=== PATIENT | female | born 1930 | race Caucasian/White ===

== ENCOUNTER 2016-12-04 14:13 | Inpatient (IN) | payer OTHER ==
[~2016-12-04] VITALS: Ht 154.9 cm; Wt 74.4 kg
[2016-12-04 15:20] LABS: Albumin 3.2 g/dL (3.4-5.0); Alkaline Phosphatase 126 U/L (45-117); Anion Gap 7 (5-15); Aspartate Aminotransferase 26 U/L (15-37); Bilirubin, Total 0.4 mg/dL (0.2-1.0); Blood Urea Nitrogen 15 mg/dL (7-18); Calcium 8.8 mg/dL (8.5-10.1); Carbon Dioxide 28 mmol/L (21-32); Chloride 107 mmol/L (98-107); GFR African American 78 mL/min; GFR Non-African American 65 mL/min; Glucose 93 mg/dL (74-106); Potassium 3.8 mmol/L (3.5-5.1); Sodium 142 mmol/L (136-145); Total Protein 7.5 g/dL (6.4-8.2)
[2016-12-04 15:22] LABS: Basophils # (auto) 0 uL; Basophils % (auto) 0.2 % (0.0-2.0); Eosinophils # (auto) 0.1 uL; Hematocrit 38.1 % (36.0-46.0); Hemoglobin 12.1 g/dL (12.2-16.2); Lymphocytes % (auto) 18.2 % (10.0-50.0); Mean Corpuscular Hemoglobin 29.4 pg (28.0-32.0); Mean Corpuscular Hgb Conc. 31.8 g/dL (32.0-36.0); Mean Corpuscular Volume 92.6 fL (80.0-100.0); Mean Platelet Volume 7.6 fL (7.4-10.4); Monocytes # (auto) 0.4 uL; Neutrophils # (auto) 3.8 uL; Neutrophils % (auto) 72.6 % (37.0-80.0); Platelet Count (auto) 284 10^3/uL (140-450); Red Cell Distribution Width 15.8 % (11.6-16.0); White Blood Cell 5.3 10^3/uL (4.4-10.8)
[2016-12-05] MEDS ORDERED: VANCOMYCIN 1GM/250ML D5W 250 ML IV ONE (07:30)
[2016-12-05] MEDS ORDERED: ENOXAPARIN SOD 80 MG/0.8ML SYRINGE SC ONE (08:15)
[2016-12-05] MEDS ORDERED: HYDROcodone-ACET 5/325MG TAB PO PRN (09:00)
[2016-12-05] MEDS ORDERED: LACTULOSE 20Gm/30ML SOLN PO PRN (09:00)
[2016-12-05] MEDS ORDERED: ACETAMINOPHEN 500 MG TAB PO PRN (09:00)
[2016-12-05] MEDS ORDERED: PROMETHAZINE HCL 25 MG/ML 1ML IV PRN (09:00)
[2016-12-05] MEDS ORDERED: LORazepam 0.5 MG TAB PO PRN (09:00)
[2016-12-05] MEDS ORDERED: MORPHINE SULF INJ 2 MG/ML SYRINGE 1ML IV PRN (09:00)
[2016-12-05] MEDS: cefTRIAXone 1GM/50ML D5W 50 ML IV SCH (09:35)
[2016-12-05] MEDS: SODIUM CHLORIDE 0.9% 1,000 ML IV SCH ×2 (09:35→21:41)
[2016-12-05] MEDS: amLODIPine BESYLATE 5 MG TAB PO SCH (09:42)
[2016-12-05] MEDS ORDERED: ALEN70SO PO (09:51)
[2016-12-05] MEDS ORDERED: PANT1INJ3 PO (09:51)
[2016-12-05] MEDS ORDERED: TIOTCAP INH (09:51)
[2016-12-05] MEDS ORDERED: CHOL400D PO (09:51)
[2016-12-05] MEDS ORDERED: PATIENTS OWN MEDICATION (Simvastatin 40 MG) PO SCH ×2 (10:00)
[2016-12-05] MEDS: CLINDAMYCIN 600MG IV 50 ML IV SCH ×2 (10:45→18:00)
[2016-12-05 12:29] VITALS: BP 129/45
[2016-12-05 13:30] VITALS: BP 131/60
[2016-12-05 17:00] VITALS: BP 145/66
[2016-12-05] MEDS: ATORVASTATIN 20 MG TAB PO SCH (21:40)
[2016-12-05 21:42] VITALS: BP 121/62
[2016-12-06] VITALS (8 sets, daily range): BP systolic 120–142; BP diastolic 51–72
[2016-12-06] MEDS: CLINDAMYCIN 600MG IV 50 ML IV SCH ×3 (01:49→17:30)
[2016-12-06] MEDS: amLODIPine BESYLATE 5 MG TAB PO SCH (09:15)
[2016-12-06] MEDS: cefTRIAXone 1GM/50ML D5W 50 ML IV SCH (09:15)
[2016-12-06] MEDS: ENOXAPARIN SOD 40 MG/0.4 ML SYRINGE SC SCH (09:15)
[2016-12-06] MEDS: SODIUM CHLORIDE 0.9% 1,000 ML IV SCH (13:06)
[2016-12-06] MEDS: ATORVASTATIN 20 MG TAB PO SCH (22:09)
[2016-12-07] VITALS (7 sets, daily range): BP systolic 123–142; BP diastolic 58–69
[2016-12-07] MEDS: CLINDAMYCIN 600MG IV 50 ML IV SCH ×3 (02:13→18:02)
[2016-12-07] MEDS: SODIUM CHLORIDE 0.9% 1,000 ML IV SCH ×2 (03:51→18:02)
[2016-12-07 06:18] LABS: Basophils # (auto) 0 uL; Basophils % (auto) 0.2 % (0.0-2.0); Eosinophils # (auto) 0.1 uL; Eosinophils % (auto) 2.9 % (0.0-7.0); Hematocrit 36.4 % (36.0-46.0); Hemoglobin 11.4 g/dL (12.2-16.2); Lymphocytes # (auto) 0.6 uL; Lymphocytes % (auto) 16.8 % (10.0-50.0); Mean Corpuscular Hemoglobin 29.3 pg (28.0-32.0); Mean Corpuscular Hgb Conc. 31.4 g/dL (32.0-36.0); Mean Corpuscular Volume 93.4 fL (80.0-100.0); Mean Platelet Volume 8.1 fL (7.4-10.4); Monocytes # (auto) 0.4 uL; Monocytes % (auto) 11.5 % (0.0-12.0); Neutrophils # (auto) 2.5 uL; Neutrophils % (auto) 68.6 % (37.0-80.0); Platelet Count (auto) 249 10^3/uL (140-450); Red Cell Distribution Width 15.3 % (11.6-16.0); White Blood Cell 3.7 10^3/uL (4.4-10.8)
[2016-12-07 06:56] LABS: Albumin 2.8 g/dL (3.4-5.0); BUN/Creatinine Ratio 16.3; Bilirubin, Total 0.3 mg/dL (0.2-1.0); Calcium 8.2 mg/dL (8.5-10.1); Potassium 3.9 mmol/L (3.5-5.1); Total Protein 6.8 g/dL (6.4-8.2)
[2016-12-07] MEDS: BOOST PLUS 8 ounce PO SCH ×3 (08:11→17:45)
[2016-12-07] MEDS: cefTRIAXone 1GM/50ML D5W 50 ML IV SCH (08:22)
[2016-12-07] MEDS: amLODIPine BESYLATE 5 MG TAB PO SCH (09:36)
[2016-12-07] MEDS: ENOXAPARIN SOD 40 MG/0.4 ML SYRINGE SC SCH (09:36)
[2016-12-07] MEDS: ALBUTEROL SULF 2.5 MG/0.5ML(0.5%) NEB SOLN NEB SCH (19:10)
[2016-12-07] MEDS: ATORVASTATIN 20 MG TAB PO SCH (21:54)
[2016-12-08] MEDS: CLINDAMYCIN 600MG IV 50 ML IV SCH ×3 (01:47→18:26)
[2016-12-08 05:01] VITALS: BP 142/60
[2016-12-08 05:35] LABS: Basophils # (auto) 0 uL; Basophils % (auto) 0.2 % (0.0-2.0); Eosinophils # (auto) 0.1 uL; Eosinophils % (auto) 2.3 % (0.0-7.0); Hematocrit 32.5 % (36.0-46.0); Hemoglobin 10.6 g/dL (12.2-16.2); Lymphocytes # (auto) 0.5 uL; Lymphocytes % (auto) 15.5 % (10.0-50.0); Mean Corpuscular Hemoglobin 30.1 pg (28.0-32.0); Mean Corpuscular Hgb Conc. 32.6 g/dL (32.0-36.0); Mean Corpuscular Volume 92.6 fL (80.0-100.0); Mean Platelet Volume 7.7 fL (7.4-10.4); Monocytes # (auto) 0.5 uL; Monocytes % (auto) 13.8 % (0.0-12.0); Neutrophils # (auto) 2.4 uL; Neutrophils % (auto) 68.2 % (37.0-80.0); Platelet Count (auto) 222 10^3/uL (140-450); Red Cell Distribution Width 15.8 % (11.6-16.0); White Blood Cell 3.5 10^3/uL (4.4-10.8)
[2016-12-08] MEDS: ALBUTEROL SULF 2.5 MG/0.5ML(0.5%) NEB SOLN NEB SCH ×4 (05:51→19:09)
[2016-12-08 06:21] LABS: Albumin 2.5 g/dL (3.4-5.0); Calcium 7.8 mg/dL (8.5-10.1); Potassium 3.8 mmol/L (3.5-5.1)
[2016-12-08 06:23] LABS: BUN/Creatinine Ratio 17.1
[2016-12-08 06:26] LABS: Bilirubin, Total 0.3 mg/dL (0.2-1.0); Total Protein 6.3 g/dL (6.4-8.2)
[2016-12-08 08:00] VITALS: BP 113/54
[2016-12-08] MEDS: SODIUM CHLORIDE 0.9% 1,000 ML IV SCH (08:19)
[2016-12-08] MEDS: cefTRIAXone 1GM/50ML D5W 50 ML IV SCH (08:19)
[2016-12-08] MEDS: BOOST PLUS 8 ounce PO SCH ×3 (08:19→18:26)
[2016-12-08 09:00] VITALS: BP 113/54
[2016-12-08] MEDS: amLODIPine BESYLATE 5 MG TAB PO SCH (09:32)
[2016-12-08] MEDS: ENOXAPARIN SOD 40 MG/0.4 ML SYRINGE SC SCH (09:32)
[2016-12-08 11:40] LABS: Cholesterol 112 mg/dL (<200); HDL Cholesterol 68 mg/dL (40-59); LDL Cholesterol 49 mg/dL (<100); Triglycerides 46 mg/dL (<150)
[2016-12-08 12:07] LABS: B-Type Natriuretic Peptide 497.62 pg/mL (0-100)
[2016-12-08 12:08] LABS: Temperature: 22.7 C (20.0-25.0)
[2016-12-08 13:00] VITALS: BP 126/55
[2016-12-08 17:00] VITALS: BP 120/64
[2016-12-08] MEDS ORDERED: FUROSEMIDE 20 MG/2 ML VIAL IV ONE (17:45)
[2016-12-08] MEDS: ATORVASTATIN 20 MG TAB PO SCH (21:37)
[2016-12-09] VITALS (8 sets, daily range): BP systolic 124–130; BP diastolic 55–85
[2016-12-09] MEDS: CLINDAMYCIN 600MG IV 50 ML IV SCH ×3 (01:42→18:04)
[2016-12-09] MEDS: ALBUTEROL SULF 2.5 MG/0.5ML(0.5%) NEB SOLN NEB SCH ×3 (06:16→19:18)
[2016-12-09 06:34] LABS: Basophils # (auto) 0 uL; Basophils % (auto) 0.1 % (0.0-2.0); Eosinophils # (auto) 0.1 uL; Eosinophils % (auto) 3.7 % (0.0-7.0); Hematocrit 33.3 % (36.0-46.0); Hemoglobin 11.1 g/dL (12.2-16.2); Lymphocytes # (auto) 0.5 uL; Lymphocytes % (auto) 13.3 % (10.0-50.0); Mean Corpuscular Hemoglobin 30.7 pg (28.0-32.0); Mean Corpuscular Hgb Conc. 33.3 g/dL (32.0-36.0); Mean Corpuscular Volume 92.3 fL (80.0-100.0); Monocytes # (auto) 0.4 uL; Monocytes % (auto) 11.9 % (0.0-12.0); Neutrophils # (auto) 2.4 uL; Platelet Count (auto) 232 10^3/uL (140-450); Red Cell Distribution Width 16.1 % (11.6-16.0); White Blood Cell 3.4 10^3/uL (4.4-10.8)
[2016-12-09 07:13] LABS: BUN/Creatinine Ratio 16.3; Calcium 8.1 mg/dL (8.5-10.1); Magnesium 2.2 mg/dL (1.6-2.6); Phosphorus 3.2 mg/dL (2.5-4.90); Potassium 3.7 mmol/L (3.5-5.1)
[2016-12-09] MEDS: BOOST PLUS 8 ounce PO SCH ×3 (08:00→18:05)
[2016-12-09] MEDS: ENOXAPARIN SOD 40 MG/0.4 ML SYRINGE SC SCH (09:46)
[2016-12-09] MEDS: cefTRIAXone 1GM/50ML D5W 50 ML IV SCH (09:47)
[2016-12-09] MEDS: amLODIPine BESYLATE 5 MG TAB PO SCH (09:47)
[2016-12-09] MEDS: FERROUS SULFATE 325 MG TAB PO SCH ×2 (09:47→18:05)
[2016-12-09] MEDS: ATORVASTATIN 20 MG TAB PO SCH (21:46)
[2016-12-09] MEDS: TEMAZEPAM 15 MG CAP PO PRN (21:46)
[2016-12-09] MEDS: FLORASTOR (S. BOULARDII) 250 MG CAP PO SCH (21:46)
[2016-12-10] MEDS: CLINDAMYCIN 600MG IV 50 ML IV SCH ×3 (02:07→18:00)
[2016-12-10 05:30] VITALS: BP 130/71
[2016-12-10] MEDS: ALBUTEROL SULF 2.5 MG/0.5ML(0.5%) NEB SOLN NEB SCH ×3 (06:37→19:38)
[2016-12-10 09:00] VITALS: BP 136/63
[2016-12-10] MEDS: BOOST PLUS 8 ounce PO SCH ×3 (09:08→18:25)
[2016-12-10] MEDS: cefTRIAXone 1GM/50ML D5W 50 ML IV SCH (09:08)
[2016-12-10] MEDS: ENOXAPARIN SOD 40 MG/0.4 ML SYRINGE SC SCH (10:19)
[2016-12-10] MEDS: amLODIPine BESYLATE 5 MG TAB PO SCH (10:20)
[2016-12-10] MEDS: FLORASTOR (S. BOULARDII) 250 MG CAP PO SCH ×2 (10:21→23:17)
[2016-12-10] MEDS: FERROUS SULFATE 325 MG TAB PO SCH ×2 (10:21→18:00)
[2016-12-10 13:00] VITALS: BP 134/61
[2016-12-10] MEDS ORDERED: ASPI-231 PO (15:37)
[2016-12-10] MEDS ORDERED: SACC250C PO (15:37)
[2016-12-10] MEDS ORDERED: FER325T PO (15:37)
[2016-12-10] MEDS ORDERED: Nutritional Supplements PO (15:37)
[2016-12-10] MEDS ORDERED: FURO20TA PO (15:59)
[2016-12-10] MEDS ORDERED: POTA-167 PO (15:59)
[2016-12-10 16:00] VITALS: BP 138/54
[2016-12-10 20:00] VITALS: BP 140/65
[2016-12-10 21:21] VITALS: BP 140/65
[2016-12-10] MEDS: ATORVASTATIN 20 MG TAB PO SCH (21:45)
[2016-12-10] MEDS: TEMAZEPAM 15 MG CAP PO PRN (23:11)
[2016-12-11] MEDS: ALBUTEROL SULF 2.5 MG/0.5ML(0.5%) NEB SOLN NEB SCH ×3 (00:01→13:30)
[2016-12-11] MEDS: CLINDAMYCIN 600MG IV 50 ML IV SCH (03:30)
[2016-12-11 05:17] VITALS: BP 133/60
[2016-12-11] MEDS: FERROUS SULFATE 325 MG TAB PO SCH (08:00)
[2016-12-11 08:21] VITALS: BP 146/72
[2016-12-11] MEDS: cefTRIAXone 1GM/50ML D5W 50 ML IV SCH (09:11)
[2016-12-11] MEDS ORDERED: methylPREDNISolone SOD SUCC 40 MG/ML VL IV ONE (10:15)
[2016-12-11] MEDS ORDERED: FUROSEMIDE 20 MG/2 ML VIAL IV ONE (10:15)
[2016-12-11] MEDS: BOOST PLUS 8 ounce PO SCH ×2 (10:32→12:00)
[2016-12-11] MEDS: amLODIPine BESYLATE 5 MG TAB PO SCH (11:09)
[2016-12-11] MEDS: FLORASTOR (S. BOULARDII) 250 MG CAP PO SCH (11:10)
[2016-12-11] MEDS: ENOXAPARIN SOD 40 MG/0.4 ML SYRINGE SC SCH (11:10)
[2016-12-11 12:14] VITALS: BP 142/77
== END 2016-12-11 16:25 | disposition home health service (06) | DRG 602 ==
LOC: ER 14:13 → OVERFLOW 14:14 → EAST 12-05 11:10
PROVIDERS: ADMIT Internal Medicine; ATTEND Internal Medicine
DX: L03.115 Cellulitis of right lower limb (principal); I50.33 Acute on chronic diastolic (congestive) heart failure; J96.01 Acute respiratory failure with hypoxia; E43 Unspecified severe protein-calorie malnutrition; J18.9 Pneumonia, unspecified organism; D68.59 Other primary thrombophilia; J44.0 Chronic obstructive pulmonary disease with (acute) lower respiratory infection; D50.9 Iron deficiency anemia, unspecified; I11.0 Hypertensive heart disease with heart failure; I87.2 Venous insufficiency (chronic) (peripheral); L03.116 Cellulitis of left lower limb; E11.51 Type 2 diabetes mellitus with diabetic peripheral angiopathy without gangrene; D63.8 Anemia in other chronic diseases classified elsewhere; M19.90 Unspecified osteoarthritis, unspecified site; E78.5 Hyperlipidemia, unspecified; F17.210 Nicotine dependence, cigarettes, uncomplicated; M81.0 Age-related osteoporosis without current pathological fracture; Z82.3 Family history of stroke; Z83.3 Family history of diabetes mellitus; Z88.0 Allergy status to penicillin; Z88.2 Allergy status to sulfonamides; Z79.899 Other long term (current) drug therapy; Z68.31 Body mass index [BMI] 31.0-31.9, adult
CPT/HCPCS: 36415; 36600; 71010; 80048; 80053; 80061; 82270; 82378; 82805; 83540; 83550; 83605; 83735; 83880; 84100; 84443; 84484; 85025; 85379; 85652; 87040; 93005; 93306; 93926; 93970; 94640; 96365; 96372; J0696; J3490

== ENCOUNTER → 2016-12-04 | Outpatient (CLI) | payer OTHER ==
[~2016-12-04] MED LIST: AML5T PO; SIMV-13 PO
== END | disposition home or self-care (01) ==
LOC: LAB 12:37
PROVIDERS: ATTEND Internal Medicine
DX: L03.90 Cellulitis, unspecified (principal)
CPT/HCPCS: 87070

== ENCOUNTER → 2017-03-23 | Outpatient (CLI) | payer OTHER ==
[~2017-03-23] MED LIST changes: +ALEN70SO PO; +ASPI-231 PO; +CHOL400D PO; +FER325T PO; +FURO20TA PO; +Nutritional Supplements PO; +POTA-167 PO; +SACC250C PO; -SIMV-13 PO; +TIOTCAP INH
== END | disposition home or self-care (01) ==
LOC: XY 09:56
PROVIDERS: ATTEND Internal Medicine
DX: I70.203 Unspecified atherosclerosis of native arteries of extremities, bilateral legs (principal)
CPT/HCPCS: 93923; 93925

== ENCOUNTER 2017-03-27 13:44 | Inpatient (IN) | payer OTHER ==
[~2017-03-27] VITALS: Ht 154.9 cm; Wt 60.2 kg
[2017-03-27 14:48] LABS: Basophils # (auto) 0 uL; Basophils % (auto) 0.3 % (0.0-2.0); Eosinophils # (auto) 0.2 uL; Eosinophils % (auto) 4.1 % (0.0-7.0); Hematocrit 40.1 % (36.0-46.0); Hemoglobin 13.5 g/dL (12.2-16.2); Lymphocytes # (auto) 1.1 uL; Mean Corpuscular Hemoglobin 31.4 pg (28.0-32.0); Mean Corpuscular Hgb Conc. 33.7 g/dL (32.0-36.0); Mean Corpuscular Volume 93.1 fL (80.0-100.0); Mean Platelet Volume 7.6 fL (7.4-10.4); Monocytes # (auto) 0.2 uL; Monocytes % (auto) 6.3 % (0.0-12.0); Neutrophils # (auto) 2.4 uL; Neutrophils % (auto) 62.3 % (37.0-80.0); Platelet Count (auto) 264 10^3/uL (140-450); Red Cell Distribution Width 16.9 % (11.6-16.0); White Blood Cell 3.9 10^3/uL (4.4-10.8)
[2017-03-27 15:28] LABS: Albumin 3.1 g/dL (3.4-5.0); Anion Gap 9 (5-15); Aspartate Aminotransferase 34 U/L (15-37); BUN/Creatinine Ratio 23.9; Blood Urea Nitrogen 27 mg/dL (7-18); Calcium 8.7 mg/dL (8.5-10.1); Carbon Dioxide 25 mmol/L (21-32); Chloride 114 mmol/L (98-107); GFR African American 59 mL/min; GFR Non-African American 48 mL/min; Glucose 84 mg/dL (74-106); Potassium 4.2 mmol/L (3.5-5.1); Sodium 148 mmol/L (136-145)
[2017-03-27 15:31] LABS: Alkaline Phosphatase 118 U/L (45-117); Bilirubin, Total 0.2 mg/dL (0.2-1.0); Total Protein 7.4 g/dL (6.4-8.2)
[2017-03-27] MEDS ORDERED: VANCOMYCIN 1GM/250ML D5W 250 ML IV ONE (18:15)
[2017-03-27] MEDS ORDERED: ENOXAPARIN SOD 80 MG/0.8ML SYRINGE SC ONE (18:15)
[2017-03-27] MEDS ORDERED: PIPERACILLIN-TAZOB 3.375GM 100 ML IV ONE (18:15)
[2017-03-27] MEDS ORDERED: LACTULOSE 20Gm/30ML SOLN PO PRN (18:45)
[2017-03-27] MEDS ORDERED: ACETAMINOPHEN 500 MG TAB PO PRN (18:45)
[2017-03-27] MEDS ORDERED: NITROGLYCERIN 0.4 MG SL TAB SL PRN (18:45)
[2017-03-27] MEDS ORDERED: LORazepam 0.5 MG TAB PO PRN (18:45)
[2017-03-27] MEDS ORDERED: TEMAZEPAM 15 MG CAP PO PRN (18:45)
[2017-03-27] MEDS ORDERED: PROMETHAZINE HCL 25 MG/ML 1ML IV PRN (18:45)
[2017-03-27] MEDS ORDERED: MORPHINE SULF INJ 2 MG/ML SYRINGE 1ML IV PRN (18:45)
[2017-03-27] MEDS ORDERED: ALBUTEROL SULF 2.5 MG/0.5ML(0.5%) NEB SOLN NEB PRN (18:45)
[2017-03-27] MEDS: D5W/SOD CHL 0.45% 1,000 ML IV SCH (20:40)
[2017-03-27] MEDS: HYDROcodone-ACET 5/325MG TAB PO PRN (20:43)
[2017-03-27 21:00] VITALS: BP_SYST 138; BP_SYST 152; BP_DIAS 79; BP_DIAS 81
[2017-03-27] MEDS: cefTRIAXone 1GM/50ML D5W 50 ML IV SCH (22:59)
[2017-03-27 23:11] LABS: Urine Bilirubin Negative (Negative); Urine Blood Negative /uL (Negative); Urine Color Yellow (Yellow); Urine Glucose Normal (Normal); Urine Ketone Negative (Negative); Urine Nitrite Negative (Negative); Urine RBC 1 /hpf (0 - 4); Urine Squamous Epithelial Cell FEW /hpf (<5); Urine Urobilinogen Normal (Negative); Urine pH 5.5 (5.0-8.0)
[2017-03-27] MEDS: MORPHINE SULF INJ 2 MG/ML SYRINGE 1ML IV PRN (23:16)
[2017-03-27] MEDS: CLINDAMYCIN 600MG IV 50 ML IV SCH (23:25)
[2017-03-28] MEDS: IPRATROPIUM BROM 0.5 MG/2.5ML INH SOL NEB SCH ×4 (00:40→20:43)
[2017-03-28] MEDS: ALBUTEROL SULF 2.5 MG/0.5ML(0.5%) NEB SOLN NEB SCH ×4 (00:40→20:43)
[2017-03-28 05:00] VITALS: BP 120/53
[2017-03-28 05:50] LABS: Basophils # (auto) 0 uL; Basophils % (auto) 0.2 % (0.0-2.0); Eosinophils # (auto) 0.2 uL; Eosinophils % (auto) 5.6 % (0.0-7.0); Hematocrit 35.6 % (36.0-46.0); Hemoglobin 12.1 g/dL (12.2-16.2); Lymphocytes # (auto) 0.8 uL; Lymphocytes % (auto) 20.5 % (10.0-50.0); Mean Corpuscular Hemoglobin 31.6 pg (28.0-32.0); Mean Corpuscular Volume 93.2 fL (80.0-100.0); Mean Platelet Volume 7.9 fL (7.4-10.4); Monocytes # (auto) 0.3 uL; Monocytes % (auto) 8.9 % (0.0-12.0); Neutrophils # (auto) 2.4 uL; Neutrophils % (auto) 64.8 % (37.0-80.0); Platelet Count (auto) 236 10^3/uL (140-450); Red Cell Distribution Width 17.2 % (11.6-16.0); White Blood Cell 3.7 10^3/uL (4.4-10.8)
[2017-03-28] MEDS: CLINDAMYCIN 600MG IV 50 ML IV SCH ×3 (06:08→22:41)
[2017-03-28 06:27] LABS: Albumin 2.9 g/dL (3.4-5.0); BUN/Creatinine Ratio 19.5; Bilirubin, Total 0.4 mg/dL (0.2-1.0); Calcium 7.8 mg/dL (8.5-10.1); Potassium 3.6 mmol/L (3.5-5.1); Total Protein 6.4 g/dL (6.4-8.2)
[2017-03-28] MEDS: D5W/SOD CHL 0.45% 1,000 ML IV SCH ×2 (08:05→22:57)
[2017-03-28 09:00] VITALS: BP 121/54
[2017-03-28] MEDS ORDERED: ASPirin 81 mg TAB PO ONE (10:00)
[2017-03-28] MEDS: ENOXAPARIN SOD 30 MG/0.3 ML SYRINGE SC SCH (10:58)
[2017-03-28] MEDS: HYDROcodone-ACET 5/325MG TAB PO PRN ×2 (10:59→22:41)
[2017-03-28] MEDS: amLODIPine BESYLATE 5 MG TAB PO SCH (11:00)
[2017-03-28] MEDS: FERROUS SULFATE 325 MG TAB PO SCH ×2 (11:00→19:13)
[2017-03-28] MEDS: ASPirin-EC 81 mg tab PO SCH (11:00)
[2017-03-28 13:00] VITALS: BP 121/72
[2017-03-28 17:00] VITALS: BP 138/62
[2017-03-28] MEDS ORDERED: ENOXAPARIN SOD 40 MG/0.4 ML SYRINGE SC SCH (18:00)
[2017-03-28] MEDS: cefTRIAXone 1GM/50ML D5W 50 ML IV SCH (19:13)
[2017-03-28 20:00] VITALS: BP 148/61
[2017-03-28 22:04] VITALS: BP 148/61
[2017-03-28] MEDS: ATORVASTATIN 20 MG TAB PO SCH (22:41)
[2017-03-29] VITALS (7 sets, daily range): BP systolic 121–141; BP diastolic 58–72
[2017-03-29] MEDS: IPRATROPIUM BROM 0.5 MG/2.5ML INH SOL NEB SCH ×4 (01:40→20:11)
[2017-03-29] MEDS: ALBUTEROL SULF 2.5 MG/0.5ML(0.5%) NEB SOLN NEB SCH ×4 (01:40→20:11)
[2017-03-29] MEDS: CLINDAMYCIN 600MG IV 50 ML IV SCH ×3 (05:32→21:50)
[2017-03-29] MEDS: HYDROcodone-ACET 5/325MG TAB PO PRN ×2 (05:32→17:44)
[2017-03-29 06:33] LABS: Basophils # (auto) 0 uL; Basophils % (auto) 0.2 % (0.0-2.0); Eosinophils # (auto) 0.2 uL; Eosinophils % (auto) 6.6 % (0.0-7.0); Hematocrit 34.8 % (36.0-46.0); Hemoglobin 11.6 g/dL (12.2-16.2); Lymphocytes # (auto) 0.6 uL; Lymphocytes % (auto) 22.4 % (10.0-50.0); Mean Corpuscular Hemoglobin 31.4 pg (28.0-32.0); Mean Corpuscular Hgb Conc. 33.4 g/dL (32.0-36.0); Mean Corpuscular Volume 94.2 fL (80.0-100.0); Mean Platelet Volume 7.9 fL (7.4-10.4); Monocytes # (auto) 0.3 uL; Monocytes % (auto) 9.9 % (0.0-12.0); Neutrophils # (auto) 1.6 uL; Neutrophils % (auto) 60.9 % (37.0-80.0); Platelet Count (auto) 223 10^3/uL (140-450); Red Cell Distribution Width 16.9 % (11.6-16.0); White Blood Cell 2.6 10^3/uL (4.4-10.8)
[2017-03-29 07:12] LABS: BUN/Creatinine Ratio 25.8; Calcium 8.3 mg/dL (8.5-10.1); Potassium 3.9 mmol/L (3.5-5.1)
[2017-03-29] MEDS: cefTRIAXone 1GM/50ML D5W 50 ML IV SCH (09:01)
[2017-03-29] MEDS: MORPHINE SULF INJ 2 MG/ML SYRINGE 1ML IV PRN (09:01)
[2017-03-29] MEDS: FERROUS SULFATE 325 MG TAB PO SCH ×2 (09:01→17:37)
[2017-03-29] MEDS: ASPirin-EC 81 mg tab PO SCH (09:02)
[2017-03-29] MEDS: amLODIPine BESYLATE 5 MG TAB PO SCH (09:02)
[2017-03-29] MEDS: ENOXAPARIN SOD 30 MG/0.3 ML SYRINGE SC SCH (09:03)
[2017-03-29] MEDS: D5W/SOD CHL 0.45% 1,000 ML IV SCH (10:45)
[2017-03-29] MEDS: SODIUM CHLORIDE 0.9% 1,000 ML IV SCH (13:45)
[2017-03-29] MEDS: ATORVASTATIN 20 MG TAB PO SCH (21:50)
[2017-03-30] MEDS: HYDROcodone-ACET 5/325MG TAB PO PRN ×4 (00:32→20:37)
[2017-03-30] MEDS: IPRATROPIUM BROM 0.5 MG/2.5ML INH SOL NEB SCH ×4 (01:04→19:41)
[2017-03-30] MEDS: ALBUTEROL SULF 2.5 MG/0.5ML(0.5%) NEB SOLN NEB SCH ×4 (01:05→19:41)
[2017-03-30 05:02] VITALS: BP 147/56
[2017-03-30] MEDS: CLINDAMYCIN 600MG IV 50 ML IV SCH ×3 (05:36→20:37)
[2017-03-30 06:37] LABS: Basophils # (auto) 0 uL; Basophils % (auto) 0.2 % (0.0-2.0); Eosinophils # (auto) 0.2 uL; Eosinophils % (auto) 5.3 % (0.0-7.0); Hematocrit 35.8 % (36.0-46.0); Lymphocytes # (auto) 0.7 uL; Lymphocytes % (auto) 20.4 % (10.0-50.0); Mean Corpuscular Hemoglobin 31.4 pg (28.0-32.0); Mean Corpuscular Hgb Conc. 33.4 g/dL (32.0-36.0); Mean Platelet Volume 7.7 fL (7.4-10.4); Monocytes # (auto) 0.3 uL; Monocytes % (auto) 9.6 % (0.0-12.0); Neutrophils # (auto) 2.2 uL; Neutrophils % (auto) 64.5 % (37.0-80.0); Platelet Count (auto) 213 10^3/uL (140-450); Red Cell Distribution Width 16.9 % (11.6-16.0); White Blood Cell 3.3 10^3/uL (4.4-10.8)
[2017-03-30 07:24] LABS: BUN/Creatinine Ratio 19.2; Calcium 8.4 mg/dL (8.5-10.1); Potassium 4.3 mmol/L (3.5-5.1)
[2017-03-30 08:00] VITALS: BP 134/72
[2017-03-30] MEDS: FERROUS SULFATE 325 MG TAB PO SCH ×2 (08:46→17:36)
[2017-03-30 09:00] VITALS: BP 134/72
[2017-03-30] MEDS: cefTRIAXone 1GM/50ML D5W 50 ML IV SCH (09:36)
[2017-03-30] MEDS: amLODIPine BESYLATE 5 MG TAB PO SCH (09:37)
[2017-03-30] MEDS: ASPirin-EC 81 mg tab PO SCH (09:38)
[2017-03-30] MEDS: ENOXAPARIN SOD 30 MG/0.3 ML SYRINGE SC SCH (09:38)
[2017-03-30 13:00] VITALS: BP 129/75
[2017-03-30] MEDS: SODIUM CHLORIDE 0.9% 1,000 ML IV SCH (13:47)
[2017-03-30 14:26] LABS: Temperature: 22.5 C (20.0-25.0)
[2017-03-30] MEDS: FLORASTOR (S. BOULARDII) 250 MG CAP PO SCH (15:10)
[2017-03-30] MEDS ORDERED: IOHEXOL 350 MG/ML 100ML IJ ONE (16:03)
[2017-03-30 17:00] VITALS: BP 134/71
[2017-03-30 21:30] VITALS: BP 141/69
[2017-03-30] MEDS: ATORVASTATIN 20 MG TAB PO SCH (22:15)
[2017-03-31] VITALS (8 sets, daily range): BP systolic 128–151; BP diastolic 64–73
[2017-03-31] MEDS: CLINDAMYCIN 600MG IV 50 ML IV SCH ×3 (06:24→21:42)
[2017-03-31 06:51] LABS: Basophils # (auto) 0 uL; Basophils % (auto) 0.3 % (0.0-2.0); Eosinophils # (auto) 0.2 uL; Eosinophils % (auto) 8.7 % (0.0-7.0); Hematocrit 36.3 % (36.0-46.0); Hemoglobin 12.2 g/dL (12.2-16.2); Lymphocytes # (auto) 0.5 uL; Lymphocytes % (auto) 19.6 % (10.0-50.0); Mean Corpuscular Hemoglobin 31.6 pg (28.0-32.0); Mean Corpuscular Hgb Conc. 33.6 g/dL (32.0-36.0); Mean Corpuscular Volume 94.2 fL (80.0-100.0); Monocytes # (auto) 0.3 uL; Neutrophils # (auto) 1.6 uL; Neutrophils % (auto) 59.4 % (37.0-80.0); Platelet Count (auto) 211 10^3/uL (140-450); Red Cell Distribution Width 16.3 % (11.6-16.0); White Blood Cell 2.8 10^3/uL (4.4-10.8)
[2017-03-31 06:56] LABS: Potassium 4.1 mmol/L (3.5-5.1)
[2017-03-31 07:00] LABS: BUN/Creatinine Ratio 21.5; Calcium 8.6 mg/dL (8.5-10.1)
[2017-03-31] MEDS: ALBUTEROL SULF 2.5 MG/0.5ML(0.5%) NEB SOLN NEB SCH ×4 (07:13→19:11)
[2017-03-31] MEDS: IPRATROPIUM BROM 0.5 MG/2.5ML INH SOL NEB SCH ×4 (07:13→19:11)
[2017-03-31] MEDS: FERROUS SULFATE 325 MG TAB PO SCH ×2 (08:47→18:01)
[2017-03-31] MEDS: ENOXAPARIN SOD 40 MG/0.4 ML SYRINGE SC SCH (09:33)
[2017-03-31] MEDS: cefTRIAXone 1GM/50ML D5W 50 ML IV SCH (09:33)
[2017-03-31] MEDS: FLORASTOR (S. BOULARDII) 250 MG CAP PO SCH (09:33)
[2017-03-31] MEDS: amLODIPine BESYLATE 5 MG TAB PO SCH (09:34)
[2017-03-31] MEDS: ASPirin-EC 81 mg tab PO SCH (09:34)
[2017-03-31] MEDS: HYDROcodone-ACET 5/325MG TAB PO PRN ×2 (11:23→15:47)
[2017-03-31] MEDS: SODIUM CHLORIDE 0.9% 1,000 ML IV SCH (14:29)
[2017-03-31] MEDS: MORPHINE SULF INJ 2 MG/ML SYRINGE 1ML IV PRN (19:56)
[2017-03-31] MEDS: ATORVASTATIN 20 MG TAB PO SCH (21:42)
[2017-04-01] MEDS: IPRATROPIUM BROM 0.5 MG/2.5ML INH SOL NEB SCH ×4 (00:36→18:46)
[2017-04-01] MEDS: ALBUTEROL SULF 2.5 MG/0.5ML(0.5%) NEB SOLN NEB SCH ×4 (00:36→18:46)
[2017-04-01 05:00] VITALS: BP 141/61
[2017-04-01] MEDS: CLINDAMYCIN 600MG IV 50 ML IV SCH ×2 (05:10→14:28)
[2017-04-01] MEDS: HYDROcodone-ACET 5/325MG TAB PO PRN ×3 (06:25→20:48)
[2017-04-01 09:00] VITALS: BP 143/69
[2017-04-01] MEDS: cefTRIAXone 1GM/50ML D5W 50 ML IV SCH (09:07)
[2017-04-01] MEDS: FERROUS SULFATE 325 MG TAB PO SCH ×2 (09:12→17:49)
[2017-04-01] MEDS: FLORASTOR (S. BOULARDII) 250 MG CAP PO SCH (09:12)
[2017-04-01] MEDS: ASPirin-EC 81 mg tab PO SCH (09:13)
[2017-04-01] MEDS: amLODIPine BESYLATE 5 MG TAB PO SCH (09:13)
[2017-04-01] MEDS: ENOXAPARIN SOD 40 MG/0.4 ML SYRINGE SC SCH (09:14)
[2017-04-01 12:54] VITALS: BP 150/78
[2017-04-01] MEDS: SODIUM CHLORIDE 0.9% 1,000 ML IV SCH (13:49)
[2017-04-01 16:47] VITALS: BP 130/61
[2017-04-01 22:00] VITALS: BP 147/62
[2017-04-01] MEDS: CLINDAMYCIN HCL 150 MG CAP PO SCH (22:51)
[2017-04-01] MEDS: ATORVASTATIN 20 MG TAB PO SCH (22:52)
[2017-04-02] MEDS: ALBUTEROL SULF 2.5 MG/0.5ML(0.5%) NEB SOLN NEB SCH ×4 (00:02→19:17)
[2017-04-02] MEDS: IPRATROPIUM BROM 0.5 MG/2.5ML INH SOL NEB SCH ×4 (00:02→19:17)
[2017-04-02 05:28] VITALS: BP 133/84
[2017-04-02] MEDS: CLINDAMYCIN HCL 150 MG CAP PO SCH ×3 (06:13→21:49)
[2017-04-02] MEDS: FERROUS SULFATE 325 MG TAB PO SCH ×2 (08:00→18:59)
[2017-04-02 09:00] VITALS: BP 157/70
[2017-04-02] MEDS: amLODIPine BESYLATE 5 MG TAB PO SCH ×2 (10:00→10:38)
[2017-04-02] MEDS: ENOXAPARIN SOD 40 MG/0.4 ML SYRINGE SC SCH (10:30)
[2017-04-02] MEDS: ASPirin-EC 81 mg tab PO SCH (10:31)
[2017-04-02] MEDS: HYDROcodone-ACET 5/325MG TAB PO PRN ×2 (10:31→16:27)
[2017-04-02] MEDS: FLORASTOR (S. BOULARDII) 250 MG CAP PO SCH (10:32)
[2017-04-02 10:40] LABS: INR 1.12 (0.9-1.15); Prothrombin Time 12.2 sec (9.37-12.3)
[2017-04-02 13:00] VITALS: BP 143/68
[2017-04-02] MEDS: SODIUM CHLORIDE 0.9% 1,000 ML IV SCH (13:45)
[2017-04-02 17:00] VITALS: BP 142/76
[2017-04-02] MEDS: MORPHINE SULF INJ 2 MG/ML SYRINGE 1ML IV PRN (20:04)
[2017-04-02] MEDS: ATORVASTATIN 20 MG TAB PO SCH (21:49)
[2017-04-02 22:00] VITALS: BP 136/66
[2017-04-02 23:38] VITALS: BP 136/66
[2017-04-03] MEDS: IPRATROPIUM BROM 0.5 MG/2.5ML INH SOL NEB SCH ×4 (00:24→18:00)
[2017-04-03] MEDS: ALBUTEROL SULF 2.5 MG/0.5ML(0.5%) NEB SOLN NEB SCH ×4 (00:24→18:00)
[2017-04-03 05:00] VITALS: BP 142/77
[2017-04-03] MEDS: CLINDAMYCIN HCL 150 MG CAP PO SCH ×3 (06:20→21:29)
[2017-04-03] MEDS ORDERED: IOHEXOL 350 MG/ML 100ML IJ ONE (07:37)
[2017-04-03] MEDS ORDERED: LIDOCAINE 2%HCL (LOCAL ANESTH.) INJ 20ML MDV ONE (07:38)
[2017-04-03] MEDS: FERROUS SULFATE 325 MG TAB PO SCH ×2 (08:00→18:37)
[2017-04-03 08:55] VITALS: BP 160/74
[2017-04-03] MEDS ORDERED: GLYCOPYRROLATE 0.2 MG/ML 1ML VIAL ONE ×2 (09:38→10:10)
[2017-04-03] MEDS ORDERED: ANGIOMAX 250 MG VIAL IV ONE (09:49)
[2017-04-03] MEDS ORDERED: SODIUM CHL 0.9% 50 ML ONE (09:49)
[2017-04-03] MEDS: ENOXAPARIN SOD 40 MG/0.4 ML SYRINGE SC SCH (10:00)
[2017-04-03] MEDS: amLODIPine BESYLATE 5 MG TAB PO SCH (10:00)
[2017-04-03] MEDS: FLORASTOR (S. BOULARDII) 250 MG CAP PO SCH (10:00)
[2017-04-03] MEDS: ASPirin-EC 81 mg tab PO SCH (10:00)
[2017-04-03] MEDS ORDERED: NITROGLYCERIN 0.4MG/DOSE SPRAY 4.9GM ONE (10:15)
[2017-04-03] MEDS ORDERED: CLOPIDOGREL 300 MG TAB ONE (10:40)
[2017-04-03] MEDS ORDERED: MORPHINE SULF INJ 2 MG/ML SYRINGE 1ML IV ONE (12:45)
[2017-04-03] MEDS: SODIUM CHLORIDE 0.9% 1,000 ML IV SCH (13:45)
[2017-04-03 16:39] VITALS: BP 136/71
[2017-04-03] MEDS: ATORVASTATIN 20 MG TAB PO SCH (21:29)
[2017-04-03 22:12] VITALS: BP 141/75
[2017-04-04 04:44] VITALS: BP 154/75
[2017-04-04] MEDS: IPRATROPIUM BROM 0.5 MG/2.5ML INH SOL NEB SCH ×3 (06:53→11:20)
[2017-04-04] MEDS: ALBUTEROL SULF 2.5 MG/0.5ML(0.5%) NEB SOLN NEB SCH ×3 (06:53→11:20)
[2017-04-04] MEDS: CLINDAMYCIN HCL 150 MG CAP PO SCH (06:57)
[2017-04-04 08:00] VITALS: BP 136/78
[2017-04-04] MEDS: FLORASTOR (S. BOULARDII) 250 MG CAP PO SCH (08:59)
[2017-04-04] MEDS: amLODIPine BESYLATE 5 MG TAB PO SCH (08:59)
[2017-04-04] MEDS: ASPirin-EC 81 mg tab PO SCH (08:59)
[2017-04-04] MEDS: ENOXAPARIN SOD 40 MG/0.4 ML SYRINGE SC SCH (08:59)
[2017-04-04] MEDS: FERROUS SULFATE 325 MG TAB PO SCH (08:59)
[2017-04-04 09:00] VITALS: BP 136/78
[2017-04-04 10:03] VITALS: BP 136/78
[2017-04-04] MEDS ORDERED: PRO-STAT 64 30ML PO ONE (13:45)
[2017-04-04 14:55] VITALS: BP 143/74
[2017-04-04] MEDS ORDERED: PRO-STAT 64 30ML PO SCH (22:00)
== END 2017-04-04 14:05 | disposition home or self-care (01) | DRG 37 ==
LOC: ER 13:47 → TELE 13:48 → TELE-WESTW 20:53
PROVIDERS: ADMIT Internal Medicine; ATTEND Internal Medicine
PROC: 037L34Z Dilation of Left Internal Carotid Artery with Drug-eluting Intraluminal Device, Percutaneous Approach (ICD-10-PCS; principal; 2017-04-03)
DX: I63.9 Cerebral infarction, unspecified (principal); N17.0 Acute kidney failure with tubular necrosis; G81.94 Hemiplegia, unspecified affecting left nondominant side; L03.115 Cellulitis of right lower limb; E87.0 Hyperosmolality and hypernatremia; E87.1 Hypo-osmolality and hyponatremia; L03.116 Cellulitis of left lower limb; D72.819 Decreased white blood cell count, unspecified; E78.5 Hyperlipidemia, unspecified; E86.9 Volume depletion, unspecified; F17.200 Nicotine dependence, unspecified, uncomplicated; I10 Essential (primary) hypertension; I16.0 Hypertensive urgency; J44.9 Chronic obstructive pulmonary disease, unspecified; M16.0 Bilateral primary osteoarthritis of hip; M81.0 Age-related osteoporosis without current pathological fracture; N94.6 Dysmenorrhea, unspecified; Z80.3 Family history of malignant neoplasm of breast; Z82.3 Family history of stroke; Z83.3 Family history of diabetes mellitus; D64.9 Anemia, unspecified; E04.1 Nontoxic single thyroid nodule; I65.23 Occlusion and stenosis of bilateral carotid arteries; Z88.0 Allergy status to penicillin; Z88.2 Allergy status to sulfonamides; Z71.89 Other specified counseling; I72.0 Aneurysm of carotid artery
CPT/HCPCS: 36415; 70450; 70498; 71010; 73502; 73564; 80048; 80053; 81001; 82550; 82607; 82746; 84443; 84484; 85025; 85610; 85652; 87040; 93005; 93886; 93971; 94640; 99291; J0696; J2543; J3490

== ENCOUNTER → 2017-05-01 | Outpatient (CLI) | payer OTHER ==
[~2017-05-01] MED LIST changes: -AML5T PO
[2017-05-01 11:20] LABS: Albumin 3.3 g/dL (3.4-5.0); BUN/Creatinine Ratio 22.4; Bilirubin, Total 0.2 mg/dL (0.2-1.0); Calcium 8.9 mg/dL (8.5-10.1); Potassium 4.1 mmol/L (3.5-5.1); Total Protein 7.5 g/dL (6.4-8.2)
== END | disposition home or self-care (01) ==
LOC: LAB 10:40
PROVIDERS: ATTEND Internal Medicine
DX: I10 Essential (primary) hypertension (principal); E78.00 Pure hypercholesterolemia, unspecified
CPT/HCPCS: 36415; 80053; 80061

== ENCOUNTER → 2017-07-03 | Outpatient (CLI) | payer OTHER ==
[2017-07-03 16:11] LABS: Albumin 3.4 g/dL (3.4-5.0); BUN/Creatinine Ratio 26.7; Basophils # (auto) 0 uL; Bilirubin, Total 0.4 mg/dL (0.2-1.0); CONDITION Y; Eosinophils # (auto) 0.1 uL; Eosinophils % (auto) 2.5 % (0.0-7.0); Hematocrit 40.5 % (36.0-46.0); Hemoglobin 13.8 g/dL (12.2-16.2); Lymphocytes # (auto) 1.2 uL; Lymphocytes % (auto) 25.3 % (10.0-50.0); Mean Corpuscular Volume 96.9 fL (80.0-100.0); Mean Platelet Volume 7.8 fL (6.9-10.8); Monocytes # (auto) 0.4 uL; Monocytes % (auto) 7.5 % (0.0-12.0); Neutrophils # (auto) 3.1 uL; Neutrophils % (auto) 64.7 % (37.0-80.0); Platelet Count (auto) 302 10^3/uL (140-450); Red Cell Distribution Width 14.8 % (11.8-14.3); Total Protein 7.9 g/dL (6.4-8.2); White Blood Cell 4.8 10^3/uL (4.4-10.8)
== END | disposition home or self-care (01) ==
LOC: LAB 14:55
PROVIDERS: ATTEND Internal Medicine
DX: I12.9 Hypertensive chronic kidney disease with stage 1 through stage 4 chronic kidney disease, or unspecified chronic kidney disease (principal); N18.3 Chronic kidney disease, stage 3 (moderate); E78.4 Other hyperlipidemia
CPT/HCPCS: 36415; 80053; 85025

== ENCOUNTER → 2017-09-17 | Outpatient (CLI) | payer OTHER ==
[2017-09-17 12:11] LABS: Basophils # (auto) 0 uL; Basophils % (auto) 0.2 % (0.0-2.0); Eosinophils # (auto) 0.2 uL; Eosinophils % (auto) 4.8 % (0.0-7.0); Hematocrit 44.2 % (36.0-46.0); Hemoglobin 14.7 g/dL (12.2-16.2); Lymphocytes # (auto) 0.7 uL; Mean Corpuscular Hemoglobin 31.5 pg (28.0-32.0); Mean Corpuscular Hgb Conc. 33.4 g/dL (32.0-36.0); Mean Corpuscular Volume 94.5 fL (80.0-100.0); Mean Platelet Volume 7.2 fL (6.9-10.8); Monocytes # (auto) 0.2 uL; Monocytes % (auto) 5.7 % (0.0-12.0); Neutrophils # (auto) 2.3 uL; Neutrophils % (auto) 68.3 % (37.0-80.0); Platelet Count (auto) 250 10^3/uL (140-450); Red Cell Distribution Width 15.6 % (11.8-14.3); White Blood Cell 3.3 10^3/uL (4.4-10.8)
[2017-09-17 13:47] LABS: Albumin 3.5 g/dL (3.4-5.0); BUN/Creatinine Ratio 16.3; Bilirubin, Total 0.4 mg/dL (0.2-1.0); Calcium 8.9 mg/dL (8.5-10.1); Potassium 3.5 mmol/L (3.5-5.1); Total Protein 8.1 g/dL (6.4-8.2)
== END | disposition home or self-care (01) ==
LOC: LAB 11:49
PROVIDERS: ATTEND Internal Medicine
DX: Z12.11 Encounter for screening for malignant neoplasm of colon (principal); I10 Essential (primary) hypertension; E78.5 Hyperlipidemia, unspecified
CPT/HCPCS: 36415; 80053; 80061; 82306; 84443; 85025

== ENCOUNTER → 2017-09-25 | Outpatient (CLI) | payer OTHER | END | disposition home or self-care (01) | LOC: LAB 15:16 | PROVIDERS: ATTEND Internal Medicine | DX: Z12.11 Encounter for screening for malignant neoplasm of colon (principal); I10 Essential (primary) hypertension; E78.5 Hyperlipidemia, unspecified | CPT/HCPCS: 82270 ==

== ENCOUNTER → 2018-01-05 | Outpatient (CLI) | payer OTHER | END | disposition home or self-care (01) | LOC: LAB 12:49 | PROVIDERS: ATTEND Physician Assistant | DX: L57.0 Actinic keratosis (principal) ==

== ENCOUNTER → 2018-11-09 | Outpatient (CLI) | payer OTHER ==
[2018-11-09 12:38] LABS: Chloride 104 mmol/L (98-107); Potassium 4.5 mmol/L (3.5-5.1); Sodium 139 mmol/L (136-145)
[2018-11-09 12:48] LABS: Alanine Aminotransferase 15 U/L (13-56); Albumin 3.4 g/dL (3.4-5.0); Alkaline Phosphatase 131 U/L (45-117); Anion Gap 4 (5-15); Aspartate Aminotransferase 17 U/L (15-37); BUN/Creatinine Ratio 17.7; Bilirubin, Total 0.5 mg/dL (0.2-1.0); Blood Urea Nitrogen 17 mg/dL (7-18); Calcium 9.3 mg/dL (8.5-10.1); Carbon Dioxide 31 mmol/L (21-32); GFR African American > 60 mL/min; GFR Non-African American 58 mL/min; Glucose 100 mg/dL (74-106); Total Protein 7.7 g/dL (6.4-8.2)
== END | disposition home or self-care (01) ==
LOC: LAB 11:39
PROVIDERS: ATTEND Internal Medicine
DX: I12.9 Hypertensive chronic kidney disease with stage 1 through stage 4 chronic kidney disease, or unspecified chronic kidney disease (principal); N18.3 Chronic kidney disease, stage 3 (moderate)
CPT/HCPCS: 36415; 80053

== ENCOUNTER → 2018-12-07 | Outpatient (CLI) | payer OTHER ==
[2018-12-07 13:24] LABS: Cholesterol 212 mg/dL (< 200); HDL Cholesterol 65 mg/dL (40-59); LDL Cholesterol 134 mg/dL (< 100); Triglycerides 91 mg/dL (< 150)
== END | disposition home or self-care (01) ==
LOC: LAB 11:18
PROVIDERS: ATTEND Internal Medicine
DX: I10 Essential (primary) hypertension (principal); E78.5 Hyperlipidemia, unspecified
CPT/HCPCS: 36415; 80061; 84443

== ENCOUNTER → 2019-02-17 | Outpatient (CLI) | payer OTHER ==
[~2019-02-17] VITALS: Ht 154.9 cm; Wt 68.0 kg
[~2019-02-17] MED LIST changes: +ADENOSINE 57 MG in GIVE UN-DILUTED 0 ML IV STA
== END | disposition home or self-care (01) ==
LOC: XY 07:26
PROVIDERS: ATTEND Internal Medicine
DX: R07.9 Chest pain, unspecified (principal); I10 Essential (primary) hypertension
CPT/HCPCS: 78452; 93017; A9500; J0153

== ENCOUNTER → 2019-02-22 | Outpatient (CLI) | payer OTHER ==
[~2019-02-22] MED LIST changes: -ADENOSINE 57 MG in GIVE UN-DILUTED 0 ML IV STA
== END | disposition home or self-care (01) ==
LOC: XY 07:51
PROVIDERS: ATTEND Internal Medicine
DX: I65.23 Occlusion and stenosis of bilateral carotid arteries (principal); I73.9 Peripheral vascular disease, unspecified; G62.9 Polyneuropathy, unspecified
CPT/HCPCS: 93886; 93925